=== PATIENT | male | born 1990 | race Caucasian/White ===

== ENCOUNTER 2022-12-27 10:17 | Emergency (ER) | payer SELFPAY ==
[2022-12-27] MEDS ORDERED: MAGNES/ALUMIN/SIMET 30ML UCUP ONE (10:54)
[2022-12-27] MEDS ORDERED: ONDANSETRON 4 MG/2 ML VIAL ONE (10:54)
[2022-12-27] MEDS ORDERED: LIDOCAINE VISCOUS 2% SOLN 15 ML UDC ONE (10:55)
[2022-12-27] MEDS ORDERED: NA CHLORIDE 0.9% 1,000 ML ONE (10:55)
[2022-12-27] MEDS ORDERED: PANTOPRAZOLE 40 MG INJ ONE (10:55)
[2022-12-27 10:59] LABS: Absolute Lymphocytes (CBC) 1.4 K/uL (0.7-4.9); Hematocrit 40.7 % (39.6-49.0); Lymphocytes % 13.6 % (15.3-44.8); MCV 86.6 fL (80-100); MPV 7.2 fL (7.6-11.3)
[2022-12-27 11:14] LABS: Albumin 4.1 g/dL (3.4-5.0); Bilirubin Total 0.4 mg/dL (0.2-1.0); Potassium 3.8 mEq/L (3.5-5.1); Protein, Total 7.4 g/dL (6.4-8.2)
--- NOTE | 2022-12-27 11:51 | RAD REPORT ---
EXAM DESCRIPTION: CT - Abdomen Pelvis W Contrast - 12/27/2022 11:25 am CLINICAL HISTORY: ABD PAIN COMPARISON: No comparisons TECHNIQUE: Thin cut axial CT imaging of the abdomen and pelvis was performed following intravenous a dministration of 100 mL Isovue 300. Multiplanar reformats were generated and reviewed. All CT scans are performed using dose optimization technique as appropriate and may include automated exposure control or mA/KV adjustment according to patient size. FINDINGS: No suspicious findings in the lung bases. The liver, spleen, and pancreas show no suspicious findings. Gallbladder and biliary tree are also wi thout suspicious finding. Symmetric renal function is seen with no hydronephrosis or suspicious renal mass. 3 millimeter nonobs tructing left lower renal pole calculus. No dilated bowel loops or bowel wall thickening. Evaluation of most of the distal transverse and prox imal descending colon is limited by nondistention. No free air, free fluid or inflammatory stranding. No hernia, mass or bulky lymphadenopathy. The urinary bladder is without significant finding. No suspicious bony findings. IMPRESSION: Left lower renal pole 3 millimeter nonobstructing calculus. No acute intra-abdominal process.
--- NOTE | 2022-12-27 14:01 | ER ---
Nurse's Notes [facility] Name: Ciaran Jerez Age: 32 yrs Sex: Male : 1990 Arrival Date: 12/27/2022 Time: 10:17 Bed 17 [facility] MD: Diagnosis: Hematemesis Presentation: 12/27 10:48 Chief complaint: Patient states: Epigastric pain x "a few weeks", also reports N/V, no ph fever or diarrhea. Coronavirus screen: Vaccine status: Patient reports being unvaccinated. Ebola Screen: No symptoms or risks identified at this time. Initial Sepsis Screen: Does the patient meet any 2 criteria? No. Patient's initial sepsis screen is negative. Does the patient have a suspected source of infection? No. Patient's initial sepsis screen is negative. Risk Assessment: Do you want to hurt yourself or someone else? Patient reports no desire to harm self or others. Onset of symptoms was December 27, 2022. 10:48 Method Of Arrival: Ambulatory ph 10:48 Acuity: ERIKA 3 ph Historical: - Allergies: 10:50 No Known Allergies; ph - PMHx: 10:50 gastritis; ph - Immunization history:: Adult Immunizations unknown. - Social history:: Smoking status: Patient denies any tobacco usage or history of. - Family history:: not pertinent. Screenin:26 [facility] ED Fall Risk Assessment (Adult) History of falling in the last 3 months, kc6 including since admission No falls in past 3 months (0 pts) Confusion or Disorientation No (0 pts) Intoxicated or Sedated No (0 pts) Impaired Gait No (0 pts) Mobility Assist Device Used No (0 pt) Altered Elimination No (0 pt) Score/Fall Risk Level 0 - 2 = Low Risk Oriented to surroundings, Maintained a safe environment, Educated pt \\T\\ family on fall prevention, incl call for assistance when getting out of bed, Assessed \\T\\ reinforced patient's understanding of fall precautions, Hourly rounding (assess needs \\T\\ fall precautionary measures) done. Abuse screen: Denies threats or abuse. Denies injuries from another. Nutritional screening: No deficits noted. Tuberculosis screening: No symptoms or risk factors identified. Assessment: 11:25 General: Appears in no apparent distress. uncomfortable, Behavior is calm, cooperative, kc6 appropriate for age. Pain: Complains of pain in epigastric area, right upper quadrant and left upper quadrant Pain does not radiate. Neuro: Anderson Agitation-Sedation Scale (RASS): 0 - Alert and Calm Level of Consciousness is awake, alert, obeys commands, Oriented to person, place, time, situation, Appropriate for age. Cardiovascular: Capillary refill < 3 seconds. Respiratory: Airway is patent Trachea midline Respiratory effort is even, unlabored, Respiratory pattern is regular, symmetrical. GI: Abdomen is flat, non-distended, Bowel sounds present X 4 quads. Abd is soft X 4 quads Abdomen is tender to palpation in epigastric area, right upper quadrant and left upper quadrant Reports nausea, vomiting, Patient currently denies diarrhea. : No signs and/or symptoms were reported regarding the genitourinary system. EENT: No signs and/or symptoms were reported regarding the EENT system. Derm: No signs and/or symptoms reported regarding the dermatologic system. Skin is intact, Skin is pink, warm \\T\\ dry. Musculoskeletal: No signs and/or symptoms reported regarding the musculoskeletal system. Circulation, motion, and sensation intact. Capillary refill < 3 seconds, Range of motion: intact in all extremities. 12:25 Reassessment: Patient appears in no apparent distress at this time. No changes from kc6 previously documented assessment. Patient and/or family updated on plan of care and expected duration. Pain level reassessed. Patient is alert, oriented x 3, equal unlabored respirations, skin warm/dry/pink. 13:45 Reassessment: Patient appears in no apparent distress at this time. No changes from kc6 previously documented assessment. Patient and/or family updated on plan of care and expected duration. Pain level reassessed. Patient is alert, oriented x 3, equal unlabored respirations, skin warm/dry/pink. Vital Signs: 10:48 BP 125 / 79; Pulse 63; Resp 18; Temp 98; Pulse Ox 100% on R/A; Weight 58.97 kg; Height ph 5 ft. 7 in. ; 12:13 BP 133 / 71; Pulse 70; Resp 17 S; Pulse Ox 100% on R/A; kc6 13:11 BP 112 / 65; Pulse 71; Resp 18 S; Pulse Ox 100% on R/A; kc6 10:48 Body Mass Index 20.36 (58.97 kg, 170.18 cm) ph ED Course: 10:20 Patient arrived in ED. am2 10:20 Francisco Fernández MD is Attending Physician. rt 10:30 Lyudmila Chacon RN is Primary Nurse. kc6 10:46 Inserted saline lock: 20 gauge in right antecubital area, using aseptic technique. kc6 Blood collected. 10:50 Triage completed. ph 10:50 Arm band placed on Patient placed in an exam room. ph 11:26 CT Abd/Pelvis - IV Contrast Only In Process Unspecified. EDMS 11:27 Patient has correct armband on for positive identification. Bed in low position. Call kc6 light in reach. Side rails up X 1. Adult w/ patient. 14:00 Noe Wu MD is Referral Physician. rt 14:11 No provider procedures requiring assistance completed. IV discontinued, intact, kc6 bleeding controlled, No redness/swelling at site. Pressure dressing applied. Administered Medications: 10:58 Drug: GI Cocktail without - (Maalox PO Suspension 30 ml, Lidocaine Mucous kc6 Membrane Liquid 2 % 15 ml) Route: PO; 11:58 Follow up: Response: No adverse reaction; Pain is decreased kc6 11:27 Drug: Pantoprazole IVP 80 mg Route: IVP; Site: left forearm; kc6 11:58 Follow up: Response: No adverse reaction kc6 11:27 Drug: Ondansetron IVP 4 mg Route: IVP; Site: left forearm; kc6 11:58 Follow up: Response: No adverse reaction; Nausea is decreased kc6 11:28 Drug: NS 0.9% IV 1000 ml Route: IV; Rate: 1 bolus; Site: left forearm; kc6 13:15 Follow up: Response: No adverse reaction; IV Status: Completed infusion; IV Intake: kc6 1000ml Medication: 14:11 VIS not applicable for this client. kc6 Intake: 13:15 IV: 1000ml; Total: 1000ml. kc6 Outcome: 14:01 Discharge ordered by . rt 14:11 Discharged to home ambulatory, with significant other. kc6 14:11 Condition: improved 14:11 Discharge instructions given to patient, Instructed on discharge instructions, follow up and referral plans. medication usage, Demonstrated understanding of instructions, follow-up care, medications, Prescriptions given X 1. 14:11 Patient left the ED. kc6 Signatures: Dispatcher [employer] Ariane Hanson Patricia RN RN Stacey Cordova Kaitlyn, RN RN kc6 Francisco Fernández MD MD rt Corrections: (The following items were deleted from the chart) 10:58 10:55 Radiology exam delayed due to test not completed at this time. [facility]
--- NOTE | 2022-12-27 14:01 | EDPHYS ---
Physician Documentation [facility] Name: Ciaran Jerez Age: 32 yrs Sex: Male : 1990 Arrival Date: 12/27/2022 Time: 10:17 Bed 17 Private MD: ED Physician Francisco Fernández HPI: 12/27 11:34 This 32 yrs old Male presents to ER via Ambulatory with complaints of Abdominal Pain. rt 11:34 Patient presents to the ED with several weeks of an epigastric pain, worsening today. rt Patient states that he has had blood in his vomit with coffee-ground emesis as well as melanic stools. Patient states that he has had an ulcer previously requiring scope. Denies other acute complaints at this time. Symptoms are moderate in severity, aching nature, nonradiating, no other aggravating or alleviating factors.. Historical: - Allergies: 10:50 No Known Allergies; ph - PMHx: 10:50 gastritis; ph - Immunization history:: Adult Immunizations unknown. - Social history:: Smoking status: Patient denies any tobacco usage or history of. - Family history:: not pertinent. ROS: 11:34 Constitutional: Negative for fever, chills, and weight loss. rt 11:34 Abdomen/GI: Positive for abdominal pain, hematemesis. 11:36 Eyes: Negative for injury, pain, redness, and discharge, Cardiovascular: Negative for rt chest pain, palpitations, and edema, Respiratory: Negative for shortness of breath, cough, wheezing, and pleuritic chest pain, MS/Extremity: Negative for injury and deformity, Skin: Negative for injury, rash, and discoloration, Neuro: Negative for headache, weakness, numbness, tingling, and seizure, Psych: Negative for depression, anxiety, suicide ideation, homicidal ideation, and hallucinations. Exam: 11:36 Constitutional: This is a well developed, well nourished patient who is awake, alert, rt and in no acute distress. Head/Face: Normocephalic, atraumatic. Chest/axilla: Normal chest wall appearance and motion. Nontender with no deformity. No lesions are appreciated. Cardiovascular: Regular rate and rhythm with a normal S1 and S2. No gallops, murmurs, or rubs. Normal PMI, no JVD. No pulse deficits. Respiratory: Lungs have equal breath sounds bilaterally, clear to auscultation and percussion. No rales, rhonchi or wheezes noted. No increased work of breathing, no retractions or nasal flaring. Skin: Warm, dry with normal turgor. Normal color with no rashes, no lesions, and no evidence of cellulitis. MS/ Extremity: Pulses equal, no cyanosis. Neurovascular intact. Full, normal range of motion. Neuro: Awake and alert, GCS 15, oriented to person, place, time, and situation. Cranial nerves II-XII grossly intact. Motor strength 5/5 in all extremities. Sensory grossly intact. Cerebellar exam normal. Normal gait. Psych: Awake, alert, with orientation to person, place and time. Behavior, mood, and affect are within normal limits. 11:36 Abdomen/GI: Tenderness to the epigastrium to left upper quadrant with mild guarding, no rebound, no distention. Vital Signs: 10:48 BP 125 / 79; Pulse 63; Resp 18; Temp 98; Pulse Ox 100% on R/A; Weight 58.97 kg; Height ph 5 ft. 7 in. ; 12:13 BP 133 / 71; Pulse 70; Resp 17 S; Pulse Ox 100% on R/A; kc6 13:11 BP 112 / 65; Pulse 71; Resp 18 S; Pulse Ox 100% on R/A; kc6 10:48 Body Mass Index 20.36 (58.97 kg, 170.18 cm) ph MDM: 10:30 Patient medically screened. rt 15:43 Differential diagnosis: Perforated viscus, ulcer, upper GI bleed, pancreatitis. Data rt reviewed: vital signs, nurses notes, lab test result(s), radiologic studies. Consideration of Admission/Observation Escalation of care including admission/observation considered. Discussed with on-call GI doctor, as there is no evidence of active bleeding, brown stools on rectal examination, with stable vital signs and H\T\H, states that there is no indication for admission to the hospital, we will follow-up patient tomorrow for scope.. Management of patient was discussed with the following: Outboard Motor Tester: On-call GI doc. I considered the following discharge prescriptions or medication management in the emergency department Medications were administered in the Emergency Department. See MAR. Test considered but Not performed: Ultrasound Normal bilirubin, LFTs, ultrasound of the gallbladder is not indicated. Care significantly affected by the following chronic conditions: Prior ulcer. Counseling: I had a detailed discussion with the patient and/or guardian regarding: the historical points, exam findings, and any diagnostic results supporting the discharge/admit diagnosis, lab results, radiology results, the need for outpatient follow up, to return to the emergency department if symptoms worsen or persist or if there are any questions or concerns that arise at home. 12/27 10:38 Order name: CBC with Diff; Complete Time: 11:34 rt 12/27 10:38 Order name: CMP; Complete Time: 11:34 rt 12/27 10:38 Order name: Lipase; Complete Time: 11:34 rt 12/27 10:38 Order name: Type And Screen; Complete Time: 12:12 rt 12/27 12:09 Order name: ABO/RH no charge; Complete Time: 12:12 EDMS 12/27 10:38 Order name: CT Abd/Pelvis - IV Contrast Only; Complete Time: 11:53 rt Administered Medications: 10:58 Drug: GI Cocktail without - (Maalox PO Suspension 30 ml, Lidocaine Mucous kc6 Membrane Liquid 2 % 15 ml) Route: PO; 11:58 Follow up: Response: No adverse reaction; Pain is decreased kc6 11:27 Drug: Pantoprazole IVP 80 mg Route: IVP; Site: left forearm; kc6 11:58 Follow up: Response: No adverse reaction kc6 11:27 Drug: Ondansetron IVP 4 mg Route: IVP; Site: left forearm; kc6 11:58 Follow up: Response: No adverse reaction; Nausea is decreased kc6 11:28 Drug: NS 0.9% IV 1000 ml Route: IV; Rate: 1 bolus; Site: left forearm; kc6 13:15 Follow up: Response: No adverse reaction; IV Status: Completed infusion; IV Intake: kc6 1000ml Disposition Summary: 12/27/22 14:01 Discharge Ordered Location: Home rt Problem: new rt Symptoms: have improved rt Condition: Stable rt Diagnosis - Hematemesis rt Followup: rt - With: Noe Wu MD - When: Tomorrow - Reason: Discharge Instructions: - Discharge Summary Sheet rt - Hematemesis rt Forms: - Medication Reconciliation Form rt - Thank You Letter rt - Antibiotic Education rt - Prescription Opioid Use rt Prescriptions: - Protonix 40 mg Oral Tablet - take 1 tablet by ORAL route once daily; 30 tablet; Refills: 0, Product rt Selection Permitted Signatures: Dispatcher [employer] Willow Christian RN RN ph Lyudmila Chacon RN RN kc6 Francisco Fernández MD MD rt
[2022-12-27 14:31] VITALS: TEMP 98; O2SAT 100
[2022-12-27 14:35] VITALS: BP 112/65
== END 2022-12-27 14:11 | disposition home or self-care (01) ==
LOC: ER 10:17
DX: K92.0 Hematemesis (principal); R10.13 Epigastric pain
CPT/HCPCS: 36415; 74177; 80053; 83690; 85025; 86850; 86900; 86901; C9113; J2405; J7030; Q9967